=== PATIENT | female | born 1940 | race Caucasian/White ===

== ENCOUNTER 2023-11-16 20:26 | Emergency (ER) | payer MEDICARE, SELFPAY ==
--- NOTE | ~2023-11-16 | CT_ITS ---
EXAMINATION: CTA abdomen pelvis DATE: 11/16/2023 23:32 INDICATION: Diffuse abdominal pain radiating to the back TECHNIQUE: Computed tomography (CT) of the abdomen and pelvis was performed with 100 CC Omnipaque 350 intravenous contrast. Automated exposure control and iterative reconstruction technique were employe d. Exam dose: 370.14 mGy-cm total exam DLP. COMPARISON: None. FINDINGS: Occasional areas of discoid atelectasis or scarring noted at the lung bases. No basilar con solidation. Heart size is within normal limits. Coronary artery calcification. No pericardial or pleural effusion . There is an approximately 1 cm soft tissue mass density in the posterior lower outer quadrant of the left breast. Diagnostic mammogram and possible left breast ultrasound examination recommended. Moderately large sliding hiatal hernia. Approximately 3 cm lateral segment left hepatic cyst. Another approximate 4 mm left hepatic cysts and possible small right hepatic cysts are suggested. Normal splenic size. No pancreatic mass lesion or calcification is noted. The gallbladder is present. No bile duct or pancreatic duct dilatation is noted. Normal morphology of the adrenal glands. Approximately 7 mm and smaller occasional right renal cysts. Probable 9 mm partially exophytic latera l mid left renal cyst with attenuation near 80 Hounsfield units. Additional occasional small cortical cysts of the left kidney are noted. No urinary tract calculus or hydroureteronephrosis. There is atherosclerotic calcification of the included descending thoracic aorta as well as abdominal aorta, with calcified plaques at the origins of the celiac and superior mesenteric arteries in addit ion she probably calcified plaque the origins of the renal arteries and inferior mesenteric artery. N o abdominal aortic aneurysm. There is probably calcification of the iliac and femoral arteries. No intraperitoneal or retroperitoneal or pelvic mass lesion or adenopathy or ascites is noted. There is a prominent amount of fecal material within the colon. Diverticulosis of the colon; no CT ev idence of diverticulitis is noted. No bowel obstruction, bowel wall thickening, pneumatosis or intrap eritoneal free air is detected. Status post hysterectomy. The urinary bladder is unremarkable. 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 There is prominent degenerative change at the apo physeal joints of the lower lumbar and lumbosacral area with associated grade 1 anterolisthesis at L5 -S1. Osteoarthritis of both hip joints. No suspicious osteolytic or osteoblastic lesions are noted. IMPRESSION: 1 cm posterior lower outer quadrant left breast mass; diagnostic mammogram left breast u ltrasound examination are recommended Moderately large sliding hiatal hernia Probable hepatic cysts Bilateral renal cysts Diverticulosis of the colon; no CT evidence of diverticulitis. Prominent degenerative changes of the thoracic and lumbar spine Axial notified the emergency room physician Dr. Evans on November 17, 2023 and 1100 hours the 1 cm po sterior lower outer quadrant left breast mass and recommendation for diagnostic mammogram and left br east ultrasound examination. Reviewed, dictated and finalized at [facility]. Reviewed, dictated and finalized at [facility]. IMPRESSION: 1 cm posterior lower outer quadrant left breast mass; diagnostic m ammogram left breast ultrasound examination are recommended Moderately large sliding hiatal hernia Probable hepatic cysts Bilateral renal cysts Diverticulosis of the colon; no CT evidence of diverticulitis. Promine
[2023-11-16 20:35] VITALS: BP 189/96; PULSE 86; RESP 20; TEMP 36.5; O2SAT 100
[2023-11-16 20:52] LABS: Basophils Percent Auto 0.3 % (0.2-1.2); Eosinophils Percent Auto 0.6 % (0-4.4); Hematocrit 41.4 % (37.0-47.0); Hemoglobin 14.1 g/dL (12.0-15.0); Immature Granulocyte Absolute 0.02 K/mm3 (0.00-0.031); Immature Granulocyte Percent A 0.3 % (0-0.5); Lymphocytes Absolute Auto 1.73 K/mm3 (0.9-3.2); Lymphocytes Percent Auto 24.1 % (18.3-44.2); Mean Corpuscular HGB Conc 34.1 g/dl (32-36); Mean Corpuscular Hemoglobin 31.7 pg (26-34); Mean Platelet Volume 10.5 fl (7.4-10.4); Monocytes Absolute Auto 0.7 K/mm3 (0.1-0.6); Neutrophils Absolute Auto 4.7 K/mm3 (1.3-6.7); Neutrophils Percent Auto 64.7 % (45.5-73.1); Platelet Count Result 262 k/mm3 (150-375); Red Blood Count 4.45 M/mm3 (4.2-5.4); Red Cell Distribution Width 13.5 % (11.5-14.5); White Blood Count 7.2 K/mm3 (4.5-10.0)
[2023-11-16 21:22] LABS: Alanine Aminotransferase 29 U/L (6-35); Albumin Level 4.4 g/dL (3.5-5.1); Alkaline Phosphatase 72 U/L (38-126); Anion Gap 11 mmol/L (4-12); Aspartate Amino Transferase 52 U/L (14-36); Bilirubin,Total 0.5 mg/dL (0.2-1.3); Blood Urea Nitrogen 32 mg/dL (7-17); Calcium 9.6 mg/dL (8.4-10.2); Carbon Dioxide 23 mmol/L (22-30); Chloride 103 mmol/L (98-107); Estimated CRCL calculation 38 ml/min; Estimated Glomerular Filt Rate > 60; Glucose 128 mg/dL (65-110); Lipase 153 U/L (23-300); Potassium 3.1 mmol/L (3.4-5.0); Sodium 137 mmol/L (137-145)
--- NOTE | 2023-11-16 22:37 | ED.GENADULT ---
HPI - General Adult General Chief complaint: Abdominal Pain Stated complaint: abd pain Time Seen by Provider: 11/16/23 22:05 History of Present Illness HPI narrative: This is a 3-year-old female presenting ED with chief complaint of abdominal pain. Two days ago she had a large amount of non-bloody diarrhea. Those symptoms resolved and she felt well yesterday, however today @ 2 pm she started developed diffuse crampy abdominal pain that radiates to her back. She has never experienced pain like this before. It improved when she laid down on his worse when she stands up. At the moment she is currently pain free. Patient denies fevers chills nausea vomiting. She has not had diarrhea since 2 days ago. Last BM was this morning and was normal. No recent travel or antibiotic use. Related Data Allergies Allergy/AdvReac Type Severity Reaction Status Date / Time No Known Allergies Allergy Verified 11/16/23 20:39 [facility] Past Medical History Medical History Hyperlipidemia Hypertension Exam Narrative: APPEARANCE: No apparent distress. Head: atraumatic. EYES: EOMI, NOSE: Atraumatic NECK: Trachea midline RESPIRATORY: No increased rate of breathing CTAB CARDIOVASCULAR: RRR, ABDOMINAL: Abdomen is soft nontender no guarding rebound, no CVA tenderness MUSCULOSKELETAl: No obvious deformities NEURO: Alert. Moving 4/4 extremities SKIN:: Warm, dry. Normal color PSYCHIATRIC: Normal affect Course Vital Signs Vital signs: Vital Signs Temperature 97.7 F 11/16/23 20:35 Pulse Rate 86 11/16/23 20:35 Respiratory Rate 20 11/16/23 20:35 Blood Pressure 189/96 H 11/16/23 20:35 Pulse Oximetry 100 11/16/23 20:35 Oxygen Delivery Room Air 11/16/23 20:35 Temperature 97.7 F 11/16/23 20:35 Pulse Rate 74 11/16/23 23:43 Respiratory Rate 12 11/16/23 23:43 Blood Pressure 155/71 H 11/16/23 23:43 Pulse Oximetry 99 11/16/23 23:43 Oxygen Delivery Room Air 11/16/23 20:35 Medical Decision Making MDM Narrative Medical decision making narrative: -Course: 83-year-old female presenting with diarrhea and abdominal pain. Patient's abdominal exam is benign. Lab work and CTA been ordered.Workup unremarkable. Patient asymptomatic on re-evaluation. Vital signs stable time. Suspect gastroenteritis. Patient discharged with return precautions. -DDX includes but is not limited to: Gastroenteritis, colitis, diverticulitis viral syndrome -Co-morbidities complicating care: Hypertension, hyperlipidemia -Independent interpretation of studies: CBC normal. Potassium 3.1 which was repleted. Urine not indicative infection. CT unremarkable. Viral swabs negative -Interventions: 1 L normal saline, Toradol, potassium, magnesium -Shared decision making / Disposition: discharged -RX dicyclomine Vital Signs Vital Signs: Vital Signs Temperature 97.7 F 11/16/23 20:35 Pulse Rate 86 11/16/23 20:35 Respiratory Rate 20 11/16/23 20:35 Blood Pressure 189/96 H 11/16/23 20:35 Pulse Oximetry 100 11/16/23 20:35 Oxygen Delivery Room Air 11/16/23 20:35 Temperature 97.7 F 11/16/23 20:35 Pulse Rate 74 11/16/23 23:43 Respiratory Rate 12 11/16/23 23:43 Blood Pressure 155/71 H 11/16/23 23:43 Pulse Oximetry 99 11/16/23 23:43 Oxygen Delivery Room Air 11/16/23 20:35 Lab Data 11/16/23 20:42 11/16/23 20:42 Labs: Lab Results 11/16/23 11/16/23 Range/Units 20:42 22:48 WBC 7.2 (4.5-10.0) K/mm3 RBC 4.45 (4.2-5.4) M/mm3 Hgb 14.1 (12.0-15.0) g/dL Hct 41.4 (37.0-47.0) % MCV 93.0 (80-100) fl MCH 31.7 (26-34) pg MCHC 34.1 (32-36) g/dl RDW 13.5 (11.5-14.5) % Plt Count 262 (150-375) k/mm3 MPV 10.5 H (7.4-10.4) fl Immature Gran % (Auto) 0.3 (0-0.5) % Neut % (Auto) 64.7 (45.5-73.1) % Lymph % (Auto) 24.1 (18.3-44.2) % [place] % (Auto) 10.0 H (2.6-8.5) %
[2023-11-16] MEDS: KETOROLAC 15 MG/ML VIAL (*BKC) IV PUSH (22:57)
[2023-11-16] MEDS: POTASSIUM CHLORIDE INJ 40 MEQ in SODIUM CHLORIDE 0.9% IV 500 ML 130 MEQ IVPB (22:58)
[2023-11-16] MEDS: MAGNESIUM SULF 2 GM/WATER 50ML 2 GM/50 ML BAG IVPB (22:58)
[2023-11-16] MEDS: SODIUM CHLORIDE 0.9% IV 1,000 ML 999 ML IV CONT (22:58)
[2023-11-16 23:25] LABS: Add Urine Microscopic? YES; Appearance Urine Clear (Clear); Bacteria Urine None Seen /hpf; Bilirubin Urine Negative (Negative); Blood Urine Negative (Negative); Color Urine Yellow (Yellow); Glucose Urine UA Negative (Negative); Ketones Urine Negative (Negative); Leukocyte Esterase Ur 1+ LEU/UL (Negative); Need Manual Microscopic Reviewed; Nitrate Urine Negative (Negative); Non Pathogenic Casts 0-2; Protein Urine Negative (Negative); RBC Urine 0-2 /hpf (0-2); Specific Grav Ur 1.015 (1.001-1.035); Squamous Epithelial Cell Urine None Seen /hpf (Few); WBC Urine 0-5 /hpf (0-3); pH Urine 6.5 (5.0-9.0)
[2023-11-16 23:43] VITALS: BP 155/71; PULSE 74; RESP 12; O2SAT 99
[2023-11-16 23:47] LABS: Influenza A QL RT-PCR Negative (Negative); Influenza B QL RT-PCR Negative (Negative); RSV RNA, RT-PCR Negative (Negative); SARS-CoV-2 RNA PCR Negative (Negative)
[2023-11-17] MEDS: POTASSIUM CHLORIDE 20 MEQ PACKET (FOR LIQUID) 40 MEQ PO (00:55)
--- NOTE | 2023-11-28 05:05 | PC.NURSE ---
LATE ENTRY Sodium chloride and magnesium sulfate infusions discontinued at 2358 Potassium chloride discontinued at 0102 at discharge
== END 2023-11-17 01:02 | disposition home or self-care (01) ==
PROVIDERS: Emergency Medicine; Emergency Provider Emergency Medicine; PCP Internal Medicine
DX: K52.9 Noninfective gastroenteritis and colitis, unspecified (principal); N63.23 Unspecified lump in the left breast, lower outer quadrant; Z20.822 Contact with and (suspected) exposure to COVID-19; E78.5 Hyperlipidemia, unspecified; I10 Essential (primary) hypertension; K44.9 Diaphragmatic hernia without obstruction or gangrene; N28.1 Cyst of kidney, acquired; K57.90 Diverticulosis of intestine, part unspecified, without perforation or abscess without bleeding
CPT/HCPCS: 36415; 74174; 80053; 81001; 83690; 85025; 87637; 96365; 96368; 96375; 99284; A9270; J1885; J3475; J3480; J7030; J7040; Q9967